=== PATIENT | male | born 1990 | race Two or more races ===

== ENCOUNTER 2019-12-17 10:19 | Outpatient (CLI) | payer MEDICARE, OTHER ==
[2019-12-17] MEDS ORDERED: CT SWABBABLE VALVE TRANS SET 1 EA INFUS.SET MC ONE (11:05)
[2019-12-17] MEDS ORDERED: IOHEXOL-300 100 ML VIAL IV ONE (11:05)
[2019-12-17] MEDS ORDERED: IV NS 0.9% 250 ML IV ONE (11:05)
== END 2019-12-17 23:59 | disposition home or self-care (01) ==
LOC: CT 10:19
DX: J18.1 Lobar pneumonia, unspecified organism (principal); R91.8 Other nonspecific abnormal finding of lung field; J98.11 Atelectasis
CPT/HCPCS: 71270; J7050; Q9967